=== PATIENT | female | born 2000 | race Caucasian/White ===

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

== ENCOUNTER → 2020-08-26 | Outpatient (CLI) | payer OTHER ==
[2020-08-26 10:28] LABS: ALBUMIN 4.2 g/dL (3.5-5.0); POTASSIUM 4.2 mmol/L (3.5-5.1); SODIUM 139 mmol/L (136-145)
[2020-08-26 10:29] LABS: CALCIUM 9.3 mg/dL (8.3-10.5)
[2020-08-26 10:30] LABS: GLUCOSE 86 mg/dL (65-105); TOTAL PROTEIN 7.3 g/dL (6.4-8.3)
[2020-08-26 10:31] LABS: CARBON DIOXIDE 26 mmol/L (22-29)
[2020-08-26 10:32] LABS: TOTAL BILIRUBIN 1.1 mg/dL (0.2-1.2)
[2020-08-26 10:36] LABS: AST-SGOT 17 U/L (5-34)
[2020-08-26 10:37] LABS: ALT/SGPT 11 U/L (0-55)
[2020-08-26 10:39] LABS: BASO # 0.1 (0.02-0.10); EOS # 0.2 (0.04-0.40); EOS % 2.7 % (0.1-4.0); HEMATOCRIT 43.3 % (35.0-45.0); HEMOGLOBIN 14.2 g/dL (12.0-15.0); LYMPH# 1.7 (1.20-3.40); MEAN CELL VOLUME 91 fl (78-95); MEAN CORPUSCULAR HEMOGLOBIN 30 pg (26-32); MEAN CORPUSCULAR HGB CONC 33 g/dL (33-37); MEAN PLATELET VOLUME 10.8 fl (7.4-10.4); MONO # 0.8 (0.10-0.60); NEU # 5.1 (1.40-6.50); PLATELET COUNT 307 K/mm3 (130-400); RED BLOOD COUNT 4.77 M/mm3 (4.10-5.30); RED CELL DISTRIBUTION WIDTH 12.7 % (11.5-14.5); WHITE BLOOD COUNT 7.9 K/mm3 (4.8-10.8)
[2020-08-26 11:09] LABS: TROPONIN-I < 0.03 ng/mL (<0.030)
[2020-08-26 11:53] LABS: LYMPHOCYTE 20 % (20-51); MONOCYTE 9 % (1-10); NEUTROPHILS 67 % (42-75)
== END ==
LOC: LAB 09:47
PROVIDERS: Family Medicine
DX: R00.2 Palpitations (principal); R53.83 Other fatigue; R07.89 Other chest pain; B35.9 Dermatophytosis, unspecified

== ENCOUNTER → 2020-09-03 | Outpatient (CLI) | payer SELFPAY | LOC: AMSURD 13:57 | DX: R05 Cough (principal); R07.89 Other chest pain; R00.2 Palpitations; Z86.19 Personal history of other infectious and parasitic diseases ==

== ENCOUNTER → 2021-03-15 | Outpatient (CLI) | payer OTHER | LOC: LAB 09:56 | DX: R30.9 Painful micturition, unspecified (principal) ==